=== PATIENT | male | born 1960 | race Two or more races ===

== ENCOUNTER 2021-10-22 01:47 | Emergency (ER) | payer OTHER ==
[~2021-10-22] VITALS: Ht 170.2 cm; Wt 172.4 kg
[2021-10-22 02:58] LABS: Basophils # (auto) 0 10 ^3/uL (0-0.2); Basophils % (auto) 0.7 % (0.0-2.0); Eosinophils # (auto) 0.1 10 ^3/uL (0-0.8); Eosinophils % (auto) 2.7 % (0.0-7.0); Hematocrit 35.7 % (41.0-53.0); Lymphocytes # (auto) 0.9 10 ^3/uL (0.4-5.4); Mean Corpuscular Hemoglobin 28.7 pg (28.0-32.0); Mean Corpuscular Hgb Conc. 33.5 g/dL (32.0-36.0); Mean Corpuscular Volume 85.8 fL (80.0-100.0); Monocytes # (auto) 0.3 10 ^3/uL (0-1.3); Monocytes % (auto) 7.3 % (0.0-12.0); Neutrophils % (auto) 68.3 % (37.0-80.0); Nucleated Red Blood Cells % 0.2 %; Red Blood Cells 4.16 10^6/uL (4.5-5.90); Red Cell Distribution Width 14.7 % (11.8-14.3); White Blood Cell 4.4 10^3/uL (4.4-10.8)
[2021-10-22 03:01] LABS: Albumin 2.8 g/dL (3.4-5.0); Calcium 7.9 mg/dL (8.5-10.1); Potassium 4.4 mmol/L (3.5-5.1)
[2021-10-22 03:03] LABS: BUN/Creatinine Ratio 13.3
[2021-10-22 03:08] LABS: Bilirubin, Total 0.4 mg/dL (0.2-1.0); Total Protein 6.4 g/dL (6.4-8.2)
[2021-10-22] MEDS ORDERED: SODIUM CHLORIDE 0.9% 1,000 ML IV ONE (05:15)
[2021-10-22] MEDS ORDERED: InsuLIN REG 1unit/0.01ml Soln (100units/ml) SC ONE (05:15)
[2021-10-22] MEDS ORDERED: HYDROcodone-ACET 10/325MG TAB PO ONE (09:30)
[2021-10-22] MEDS ORDERED: amLODIPine BESYLATE 5 MG TAB PO ONE (10:15)
[2021-10-22] MEDS ORDERED: AZIT250T9 PO (12:24)
[2021-10-22 13:01] VITALS: BP 166/75
== END 2021-10-22 12:23 | disposition home or self-care (01) ==
LOC: EDBD 01:47 → ER 01:53
DX: R07.89 Other chest pain (principal); I10 Essential (primary) hypertension; E11.9 Type 2 diabetes mellitus without complications
CPT/HCPCS: 36415; 71045; 80053; 83880; 84484; 85025; 93005; 93971; 96360; 99285; J7030

== ENCOUNTER 2022-05-19 03:20 | Emergency (ER) | payer OTHER, MEDICAID ==
[~2022-05-19] VITALS: Ht 167.6 cm; Wt 200.0 kg
[~2022-05-19 03:20] MED LIST: AZIT250T9 PO
[2022-05-19 04:58] LABS: Eosinophils # (auto) 0.1 10 ^3/uL (0-0.8); Lymphocytes # (auto) 0.7 10 ^3/uL (0.4-5.4); Mean Corpuscular Volume 82.7 fL (80.0-100.0); Nucleated Red Blood Cells % 0.1 %; Red Cell Distribution Width 15.6 % (11.8-14.3)
[2022-05-19 04:59] LABS: Basophils # (auto) 0 10 ^3/uL (0-0.2); Basophils % (auto) 0.7 % (0.0-2.0); Eosinophils % (auto) 2.2 % (0.0-7.0); Hematocrit 37.3 % (41.0-53.0); Hemoglobin 12.2 g/dL (13.5-17.5); Lymphocytes % (auto) 14.7 % (10.0-50.0); Mean Corpuscular Hgb Conc. 32.6 g/dL (32.0-36.0); Monocytes # (auto) 0.5 10 ^3/uL (0-1.3); Monocytes % (auto) 9.6 % (0.0-12.0); Neutrophils # (auto) 3.5 10 ^3/uL (1.6-8.6); Neutrophils % (auto) 72.8 % (37.0-80.0); Red Blood Cells 4.51 10^6/uL (4.5-5.90); White Blood Cell 4.8 10^3/uL (4.4-10.8)
[2022-05-19] MEDS ORDERED: HYDROcodone-ACET 10/325MG TAB PO ONE (05:00)
[2022-05-19] MEDS ORDERED: METOPROLOL TARTRATE 50 MG TAB PO ONE (05:00)
[2022-05-19] MEDS ORDERED: LISINOPRIL 20 MG TAB PO ONE (05:00)
[2022-05-19 05:14] LABS: Albumin 2.7 g/dL (3.4-5.0); BUN/Creatinine Ratio 16.7; Calcium 7.8 mg/dL (8.5-10.1); Potassium 4.5 mmol/L (3.5-5.1)
[2022-05-19 05:16] LABS: Bilirubin, Total 0.6 mg/dL (0.2-1.0); Total Protein 6.7 g/dL (6.4-8.2)
[2022-05-19 05:44] LABS: Urine Bacteria NONE SEEN /hpf (None Seen); Urine Blood 2+ /uL (Negative); Urine Specific Gravity 1.024 (1.001-1.035); Urine WBC 3 /hpf (0 - 3)
[2022-05-19] MEDS ORDERED: METO-159 PO (06:08)
[2022-05-19] MEDS ORDERED: HYDR-4798 PO (06:08)
[2022-05-19] MEDS ORDERED: LISI40TA11 PO (06:08)
[2022-05-19] MEDS ORDERED: METOPROLOL TARTRATE 1MG/1ML-5ML VIAL IV ONE (11:30)
[2022-05-19] MEDS ORDERED: SPIRONOLACTONE 25 MG TAB PO ONE (11:30)
[2022-05-19] MEDS ORDERED: FUROSEMIDE 40 MG/4 ML VIAL IV ONE (11:30)
[2022-05-19 14:14] VITALS: BP 169/82
== END 2022-05-19 14:34 | disposition still patient (30) ==
LOC: EDBD 03:20 → ER 03:25
DX: R06.02 Shortness of breath (principal); J44.9 Chronic obstructive pulmonary disease, unspecified; I10 Essential (primary) hypertension; E11.9 Type 2 diabetes mellitus without complications; Z20.822 Contact with and (suspected) exposure to COVID-19
CPT/HCPCS: 36415; 36600; 71045; 80053; 81001; 82805; 82962; 83605; 83880; 84484; 85025; 87040; 87426; 87804; 93005; 96374; 96375; 99285; J1940

== ENCOUNTER 2022-12-26 20:47 | Emergency (ER) | payer OTHER, MEDICAID ==
[~2022-12-26] VITALS: Ht 170.2 cm; Wt 175.0 kg
[~2022-12-26 20:47] MED LIST changes: +AZIT-43 PO; -AZIT250T9 PO; +HYDR-4798 PO; +LISI40TA16 PO; +METO-159 PO
[2022-12-26 21:26] LABS: Basophils # (auto) 0 10 ^3/uL (0-0.2); Basophils % (auto) 0.4 % (0.0-2.0); Eosinophils # (auto) 0.1 10 ^3/uL (0-0.8); Eosinophils % (auto) 2.7 % (0.0-7.0); Hematocrit 37.9 % (41.0-53.0); Hemoglobin 12.6 g/dL (13.5-17.5); Lymphocytes # (auto) 1.3 10 ^3/uL (0.4-5.4); Lymphocytes % (auto) 26.7 % (10.0-50.0); Mean Corpuscular Hemoglobin 28.2 pg (28.0-32.0); Mean Corpuscular Hgb Conc. 33.3 g/dL (32.0-36.0); Mean Corpuscular Volume 84.7 fL (80.0-100.0); Monocytes # (auto) 0.3 10 ^3/uL (0-1.3); Monocytes % (auto) 5.9 % (0.0-12.0); Neutrophils # (auto) 3.2 10 ^3/uL (1.6-8.6); Neutrophils % (auto) 64.3 % (37.0-80.0); Nucleated Red Blood Cells % 0.1 %; Red Blood Cells 4.48 10^6/uL (4.5-5.90); Red Cell Distribution Width 15.1 % (11.8-14.3)
[2022-12-26 21:39] LABS: Albumin 2.5 g/dL (3.4-5.0); Calcium 7.8 mg/dL (8.5-10.1); Potassium 4.3 mmol/L (3.5-5.1)
[2022-12-26 21:41] LABS: Partial Thromboplastin Time 25.6 sec (24.6-33.4)
[2022-12-26 21:42] LABS: BUN/Creatinine Ratio 19.6 (10.0-20.0); Bilirubin, Total 0.2 mg/dL (0.2-1.0); Total Protein 5.4 g/dL (6.4-8.2)
[2022-12-26] MEDS ORDERED: HYDROcodone-ACET 10/325MG TAB PO ONE (23:30)
[2022-12-26] MEDS ORDERED: GABAPENTIN 300 MG CAP PO ONE (23:30)
[2022-12-26] MEDS ORDERED: InsuLIN REG 1unit/0.01ml Soln (100units/ml) SC ONE (23:30)
[2022-12-26] MEDS ORDERED: INSULIN 70/30 1unit/0.01ml Susp (100units/ml) SC ONE (23:30)
[2022-12-26] MEDS: ASPirin 81 mg TAB PO ONE (23:45)
[2022-12-27] MEDS: ASPirin 81 mg TAB PO ONE (00:21)
[2022-12-27] MEDS ORDERED: METOPROLOL TARTRATE 1MG/1ML-5ML VIAL IV ONE (02:30)
[2022-12-27 04:53] VITALS: BP 178/67
[2022-12-27] MEDS ORDERED: HYDROcodone-ACET 10/325MG TAB PO ONE (05:00)
== END 2022-12-27 05:16 | disposition short-term general hospital (02) ==
LOC: EDBD 20:47 → ER 20:51
DX: R06.02 Shortness of breath (principal); J44.9 Chronic obstructive pulmonary disease, unspecified; I11.0 Hypertensive heart disease with heart failure; I50.9 Heart failure, unspecified; E11.9 Type 2 diabetes mellitus without complications; Z20.822 Contact with and (suspected) exposure to COVID-19; Z88.6 Allergy status to analgesic agent; Z88.0 Allergy status to penicillin
CPT/HCPCS: 36415; 71045; 80053; 82962; 83735; 83880; 84484; 85025; 85379; 85610; 85730; 87426; 93005; 96372; 96374; 99285; J1815

== ENCOUNTER 2023-04-12 22:46 | Emergency (ER) | payer OTHER, MEDICAID ==
[~2023-04-12] VITALS: Ht 170.2 cm; Wt 180.0 kg
[2023-04-12 23:23] LABS: Basophils # (auto) 0 10 ^3/uL (0-0.2); Basophils % (auto) 0.3 % (0.0-2.0); Eosinophils # (auto) 0 10 ^3/uL (0-0.8); Eosinophils % (auto) 0.3 % (0.0-7.0); Hematocrit 38.3 % (41.0-53.0); Hemoglobin 12.4 g/dL (13.5-17.5); Lymphocytes # (auto) 1.5 10 ^3/uL (0.4-5.4); Mean Corpuscular Hemoglobin 27.8 pg (28.0-32.0); Mean Corpuscular Hgb Conc. 32.3 g/dL (32.0-36.0); Mean Corpuscular Volume 86.2 fL (80.0-100.0); Monocytes # (auto) 0.3 10 ^3/uL (0-1.3); Neutrophils # (auto) 12.2 10 ^3/uL (1.6-8.6); Neutrophils % (auto) 86.4 % (37.0-80.0); Red Blood Cells 4.44 10^6/uL (4.5-5.90); Red Cell Distribution Width 15.6 % (11.8-14.3); White Blood Cell 14.1 10^3/uL (4.4-10.8)
[2023-04-12 23:35] LABS: INR 1.06 (0.9-1.15); Partial Thromboplastin Time 27.7 SEC (24.5-34.5); Prothrombin Time 11.1 sec (9.3-11.8)
[2023-04-13 00:06] VITALS: PULSE 88; RESP 20; O2SAT 97
[2023-04-13] MEDS ORDERED: AZITHROMYCIN 500MG/ 250ML 250 ML IV ONE (01:15)
[2023-04-13] MEDS ORDERED: ALBUTEROL SULF 2.5 MG/0.5ML(0.5%) NEB SOLN NEB ONE (01:15)
[2023-04-13] MEDS ORDERED: cefTRIAXone 1GM/50ML D5W 50 ML IV ONE (01:15)
[2023-04-13 02:10] LABS: Alanine Aminotransferase 17 U/L (7-40); Alkaline Phosphatase 129 U/L (46-116); Anion Gap 9 (5-15); Aspartate Aminotransferase 22 U/L (13-40); BUN/Creatinine Ratio 13.8 (10.0-20.0); Bilirubin, Total 0.6 mg/dL (0.2-1.0); Blood Urea Nitrogen 22 mg/dL (9-23); Calcium 9.1 mg/dL (8.7-10.4); Carbon Dioxide 29 mmol/L (20-30); Chloride 102 mmol/L (98-107); Glucose 246 mg/dL (74-106); Potassium 4.9 mmol/L (3.5-5.1); Sodium 140 mmol/L (136-145); Total Protein 6.7 g/dL (5.7-8.2)
[2023-04-13 03:45] LABS: Albumin 3.8 g/dL (3.2-4.8)
[2023-04-13 06:31] LABS: COVID19 ANTIGEN SOFIA FIA NEGATIVE (NEGATIVE)
[2023-04-13] MEDS ORDERED: MORPHINE SULFATE 4 MG/ML SYR/VIAL IV PRN (07:15)
[2023-04-13 08:00] VITALS: PULSE 76; RESP 22; O2SAT 95
[2023-04-13] MEDS ORDERED: ONDANSETRON HCL 4 MG/2 ML VIAL IV PRN (08:30)
[2023-04-13] MEDS ORDERED: MORPHINE SULFATE 4 MG/ML SYR/VIAL IV ONE (08:30)
[2023-04-13] MEDS ORDERED: ONDANSETRON HCL 4 MG/2 ML VIAL IV ONE (08:30)
[2023-04-13 09:58] VITALS: TEMP 98.6; O2SAT 97
[2023-04-13 10:16] VITALS: BP 159/50; PULSE 80; RESP 19
== END 2023-04-13 10:32 | disposition short-term general hospital (02) ==
LOC: EDBD 22:46 → ER 22:46
DX: R50.9 Fever, unspecified (principal); R06.02 Shortness of breath; D72.829 Elevated white blood cell count, unspecified; L30.4 Erythema intertrigo; J98.8 Other specified respiratory disorders; J44.9 Chronic obstructive pulmonary disease, unspecified; E11.9 Type 2 diabetes mellitus without complications; I10 Essential (primary) hypertension; Z20.822 Contact with and (suspected) exposure to COVID-19
CPT/HCPCS: 36415; 71045; 80053; 83605; 83880; 84484; 85025; 85610; 85730; 87040; 87426; 93005; 94640; 96365; 96366; 96367; 96375; 96376; 99285; J0456; J0696; J2270; J2405

== ENCOUNTER 2023-10-08 11:10 | Emergency (ER) | payer OTHER, MEDICAID ==
[~2023-10-08] VITALS: Ht 177.8 cm; Wt 181.8 kg
[2023-10-08 11:53] VITALS: PULSE 63; RESP 15; O2SAT 93
[2023-10-08 12:12] LABS: Basophils # (auto) 0 10 ^3/uL (0-0.2); Basophils % (auto) 0.4 % (0.0-2.0); Eosinophils # (auto) 0.1 10 ^3/uL (0-0.8); Eosinophils % (auto) 1.2 % (0.0-7.0); Hematocrit 35.1 % (41.0-53.0); Hemoglobin 11.3 g/dL (13.5-17.5); Lymphocytes % (auto) 14.7 % (10.0-50.0); Mean Corpuscular Hemoglobin 28.3 pg (28.0-32.0); Mean Corpuscular Hgb Conc. 32.2 g/dL (32.0-36.0); Mean Corpuscular Volume 87.9 fL (80.0-100.0); Monocytes # (auto) 0.4 10 ^3/uL (0-1.3); Monocytes % (auto) 6.1 % (0.0-12.0); Neutrophils # (auto) 5.1 10 ^3/uL (1.6-8.6); Neutrophils % (auto) 77.6 % (37.0-80.0); Nucleated Red Blood Cells % 0.1 %; Red Cell Distribution Width 14.9 % (11.8-14.3); White Blood Cell 6.6 10^3/uL (4.4-10.8)
[2023-10-08 12:20] LABS: Alanine Aminotransferase 17 U/L (7-40); Albumin 3.5 g/dL (3.2-4.8); Alkaline Phosphatase 101 U/L (46-116); Anion Gap 1 (5-15); Aspartate Aminotransferase 19 U/L (13-40); BUN/Creatinine Ratio 21.7 (10.0-20.0); Blood Urea Nitrogen 36 mg/dL (9-23); Calcium 8.7 mg/dL (8.5-10.1); Carbon Dioxide 36 mmol/L (20-30); Chloride 104 mmol/L (98-107); Glucose 180 mg/dL (74-106); Potassium 4.8 mmol/L (3.5-5.1); Sodium 141 mmol/L (136-145)
[2023-10-08 12:21] LABS: Bilirubin, Total 0.6 mg/dL (0.2-1.0); Total Protein 5.8 g/dL (5.7-8.2)
[2023-10-08] MEDS: ALBUTEROL SULF 2.5 MG/0.5ML(0.5%) NEB SOLN NEB ONE (12:44)
[2023-10-08] MEDS: IPRATROPIUM BROM 0.5 MG/2.5ML INH SOL NEB ONE (12:44)
[2023-10-08] MEDS: methylPREDNISolone SOD SUCC 125 MG/2 ML VL IV ONE (12:55)
[2023-10-08] MEDS: FUROSEMIDE 40 MG/4 ML VIAL IV ONE (12:55)
[2023-10-08] MEDS: GABAPENTIN 300 MG CAP PO ONE (17:08)
[2023-10-08] MEDS: OXYCODONE W/ ACETAMINOPHEN 5/325MG TABLET PO ONE (17:09)
[2023-10-08] MEDS: InsuLIN REG 1unit/0.01ml Soln (100units/ml) SC ONE (18:21)
[2023-10-08] MEDS: METOPROLOL TARTRATE 50 MG TAB PO ONE (18:25)
[2023-10-08] MEDS: LISINOPRIL 20 MG TAB PO ONE (18:25)
[2023-10-08 19:39] VITALS: PULSE 71; RESP 19; O2SAT 94
[2023-10-08 23:35] VITALS: BP 157/62; PULSE 77; RESP 14; TEMP 98; O2SAT 96
== END 2023-10-08 23:50 | disposition short-term general hospital (02) ==
LOC: ER 11:10 → EDUNIT# 11:10 → EDBD 11:10 → ER 23:50
DX: I11.0 Hypertensive heart disease with heart failure (principal); I50.9 Heart failure, unspecified; J44.9 Chronic obstructive pulmonary disease, unspecified; E11.9 Type 2 diabetes mellitus without complications; Z88.0 Allergy status to penicillin; Z88.6 Allergy status to analgesic agent
CPT/HCPCS: 36415; 71045; 80053; 82962; 83880; 84484; 85025; 93005; 94640; 96372; 96374; 96375; 99291; J1815; J1940; J2930; J7644

== ENCOUNTER 2025-07-04 11:37 | Emergency (ER) | payer OTHER, MEDICAID ==
[~2025-07-04] VITALS: Ht 167.6 cm; Wt 186.0 kg
--- NOTE | 2025-07-04 11:52 | ECG ---
[facility] Test Date: 2025-07-04 Test Time: 11:49:06 Pat Name: ISAAC BARKLEY Department: Room: Gender: M Linen Folder: RADHA : 1960 Requested By: FALLON LEÓN Order Number: [id number] Reading MD: Al Starks Measurements Intervals [place] Rate: 70 P: 0 WA: 57 QRS: -5 QRSD: 102 T: 127 QT: 415 QTc: 448 Interpretive Statements Sinus rhythm Short WA interval Consider right atrial enlargement Low voltage, precordial leads Abnormal T, consider ischemia, lateral leads Baseline wander in lead(s) I Electronically Signed On 07-07-2025 19:22:02 PST by Al Starks Please click the below link to view image of tracing.
[2025-07-04 12:14] VITALS: PULSE 69; RESP 12; O2SAT 92
[2025-07-04] MEDS: ALBUTEROL SULF 2.5 MG/0.5ML(0.5%) NEB SOLN NEB ONE (12:51)
[2025-07-04] MEDS: IPRATROPIUM BROM 0.5 MG/2.5ML INH SOL NEB ONE (12:51)
--- NOTE | 2025-07-04 12:57 | DVH ---
EXAM: XY CHEST XRAY 1 VIEW HISTORY: sob COMPARISON: XY CHEST PORTABLE on DOS: 10/08/23, XY CHEST PORTABLE on DOS: 04/12/23, XY CHEST PORTABLE on DOS: 12/26/22, CXRP on DOS: 05/19/22, CHEST PORTABLE on DOS: 05/19/22 TECHNIQUE: Portable AP view of the chest was performed. FINDINGS: Lung volumes are low, greater on the right due to elevation of the right hemidiaphragm. There is hazy opacity throughout both lungs, greater on the left. No pneumothorax. The heart is enlarged. There is abundant overlying adipose tissue. IMPRESSION: Cardiomegaly with diffuse hazy opacities in both lungs which may be due to CHF and/or pneumonia. This appearance is likely exaggerated by the patient's large body habitus and Low lung volumes.
[2025-07-04 13:24] LABS: Hematocrit 32.1 % (41.0-53.0); Hemoglobin 10.1 g/dL (13.5-17.5); Mean Corpuscular Hemoglobin 27.4 pg (28.0-32.0); Mean Corpuscular Volume 87.5 fL (80.0-100.0); Nucleated Red Blood Cells % 0.1 %
--- NOTE | 2025-07-04 13:25 | ED.PDOC ---
SOB-HPI HPI Comments This is a 64-year-old male with a PMHx of CHF, COPD, type 2 diabetes mellitus, hypertension, COVIDx3 and morbid obesity, who has come to the ER today via EMS with chief complaints of shortness of breath. Patient reports that he has felt short of breath for 1 week which has been worsening, and today he weeks down to his PCP via telephone who asked him to call 911. Patient reports that he tried his breathing treatments which did not help and he even increased his home oxygen of 3 L to 4 L but still felt no relief. He also reports of slight tightness of chest and slight blurring of vision in the right eye. Patient reports that he feels like he is retaining fluid and states that he uses Lasix at home and that his home health nurse has been telling him his legs more swollen than before. Patient denies any cough, fever, chills, recent sick contacts or any other symptoms. EMS informed that the patient's blood pressure en route was 171/67 mmHg, HR 89, SpO2 91% on 4 L oxygen, RR 22, blood sugar levels 167. Chief Complaint: Shortness of Breath Time Seen by MD: 11:55 Primary Care Provider: YUDY Navarrete notes: Medications, Allergies Information Source: Patient, Emergency Med Personnel Mode of Arrival: EMS Severity: Severe Timing: Days Duration: Since onset Context: At Rest PE Risk Factors: Immobilization History of: COPD, CHF Prehospital treatment: Oxygen Modifying Factors: Nothing Associated Signs and Symptoms: Chest Pain Quality: Tightness Radiation: No Radiation Location: Substernal Past Medical History PAST MEDICAL HISTORY: CHF, COPD, DM, HTN Surgical History: Denies all surgeries Family History Family History: Reviewed,noncontributory to illness Social History Smoker: Non-Smoker Alcohol: Denies ETOH Use Drugs: Denies Drug Use Lives In: Home Constitutional: denies: chills, diaphoresis, fatigue, fever, malaise, sweats, weakness, others EENTM: denies: blurred vision, double vision, ear bleeding, ear discharge, ear drainage, ear pain, ear ringing, eye pain, eye redness, hearing loss, mouth p ain, mouth swelling, nasal discharge, nose bleeding, nose congestion, nose pain, photophobia, tearing, throat pain, throat swelling, voice changes, others Respiratory: reports: SOB at rest; denies: cough, hemoptysis, orthopnea, shortness of breath, SOB with excertion, stridor, wheezing, others Cardiovascular: reports: edema (Bilateral leg edema, painful on touch, erythematous); denies: chest pain, dizzy spells, diaphoresis, Dyspnea on exertion, irregular heart beat, left arm pain, lightheadedness, palpitations, PND, syncope, others Gastrointestinal: denies: abdomen distended, abdominal pain, blood streaked bowels, constipated, diarrhea, dysphagia, difficulty swallowing, hematemesis, melena, nausea, poor appetite, poor fluid intake, rectal bleeding, rectal pain, vomiting, others Genitourinary: denies: burning, dysuria, flank pain, frequency, hematuria, incontinence, penile discharge, penile sore, pain, testicle pain, testicle swelling, urgency, others Neurological: denies: dizziness, fainting, headache, left sided numbness, left sided weakness, numbness, paresthesia, pre-existing deficit, right sided numbness, right sided weakness, seizure, speech problems, tingling, tremors, weakness, others Musculoskeletal: reports: gout; denies: back pain, joint pain, joint swelling, muscle pain, muscle stiffness, neck pain, others Integumetry: reports: others (Bilateral lower leg erythema); denies: bruises, change in color, change in hair/nails, dryness, laceration, lesions, lumps, rash, wounds Allergic/Immunocompromised: denies: Difficulty Healing, Frequent Infections, Hives, Itching, others Hematologic/Lymphatic: denies: anemia, blood clots, easy bleeding, easy bruising, swollen glands, others Endocrine: denies: excessive hunger, excessive sweating, excessive thirst, excessive urination, flushing, intolerance to cold, intolerance to heat, unexplained weight gain, unexplained weight loss, others Psychiatric: denies: anxiety, bipolar disorder, depression, hopeless, panic disorder, schizophrenia, sleepless, suicidal, others Physical Exam General Appearance: Moderate Distress HEENT: Other (, no icterus, patient maintains eye contact, patient on 4 L oxygen via nasal cannula) Neck: Full Range of Motion, Normal Respiratory: Decreased Breath Sounds, Respiratory Distress, Other (No wheeze, stridor or rhonchi heard) Cardiovascular: No JVD, No Murmur, Regular Rate/Rhythm, Other (Bilateral pitting edema +1 of to knee) Breast Exam: Deferred Gastrointestinal: Non Tender, No Pulsatile Mass, Normal Bowel Sounds Genitalia: Deferred Pelvic: Deferred Rectal: Deferred Extremities: Other (Presence of bilateral pitting edema +1 up to knee, tenderness on palpation of bilateral legs, erythematous) Neurologic: Other (No sensory motor deficits noted, no facial droop) Cerebellar Function: Unable to Test Reflexes: Normal Skin: Normal Color Lymphatic: Other (No cervical lymphadenopathy palpated) Was a procedure done? Was a procedure done?: No Differential Dx Differential Diagnosis: Bronchitis, CHF, COPD, Pneumonia, URI X-Ray, Labs, Meds, VS Vital Signs Date Time Temp Pulse Resp B/P (MAP) Pulse Ox O2 Delivery O2 Flow Rate FiO2 07/04/25 12:40 16 97 Nasal Cannula* 3 32 07/04/25 12:14 12 92 Nasal Cannula* 3 32 07/04/25 12:14 97.6 69 12 153/43 (79) 92 97.6 07/04/25 12:14 69 12 92 Nasal Cannula* 3 32 07/04/25 11:49 70 07/04/25 11:42 98.9 112 22 171/67 91 98.9 07/04/25 11:42 91 Nasal Cannula* 4 36 Lab Test 07/04/25 14:15 07/04/25 13:40 07/04/25 12:33 Range/Units Lactic Acid Level 1.3 0.4-2.0 mmol/L Troponin I High Sensitivity 16 18 </=54 ng/L White Blood Count 4.1 L 4.4-10.8 10^3/uL Red Blood Count 3.67 L 4.5-5.90 10^6/uL Hemoglobin 10.1 L 13.5-17.5 g/dL Hematocrit 32.1 L 41.0-53.0 % Mean Corpuscular Volume 87.5 80.0-100.0 fL Mean Corpuscular Hemoglobin 27.4 L 28.0-32.0 pg Mean Corpuscular Hemoglobin Concent 31.3 L 32.0-36.0 g/dL Red Cell Distribution Width 14.9 H 11.8-14.3 % Platelet Count 161 140-450 10^3/uL Mean Platelet Volume 8.3 6.9-10.8 fL Neutrophils (%) (Auto) 71.9 37.0-80.0 % Lymphocytes (%) (Auto) 18.9 10.0-50.0 % Monocytes (%) (Auto) 5.3 0.0-12.0 % Eosinophils (%) (Auto) 3.2 0.0-7.0 % Basophils (%) (Auto) 0.7 0.0-2.0 % Neutrophils # (Auto) 2.9 1.6-8.6 10 ^3/uL Lymphocytes # (Auto) 0.8 0.4-5.4 10 ^3/uL Monocytes # (Auto) 0.2 0-1.3 10 ^3/uL Eosinophils # (Auto) 0.1 0-0.8 10 ^3/uL Basophils # (Auto) 0 0-0.2 10 ^3/uL Nucleated Red Blood Cells 0.1 % Sodium Level 147 H 136-145 mmol/L Potassium Level 4.8 3.5-5.1 mmol/L Chloride Level 101 98-107 mmol/L Carbon Dioxide Level > 40 *H 20-31 mmol/L Anion Gap 5.85612 5-15 Blood Urea Nitrogen 32 H 9-23 mg/dL Creatinine 1.45 H 0.700-1.30 mg/dL Glomerular Filtration Rate Calc 53 >90 mL/min BUN/Creatinine Ratio 22.1 H 10.0-20.0 Serum Glucose 142 H 74-106 mg/dL Calcium Level 8.8 8.7-10.4 mg/dL B-Type Natriuretic Peptide 37.96 0-100 pg/mL Current Medications Medications (Trade) Dose Ordered Sig/Tori Route Start Time Stop Time Status Last Admin Albuterol (Ventolin Medneb) 5 mg ONCE ONCE NEB 07/04/25 12:15 07/04/25 12:19 DC 07/04/25 12:51 Ipratropium [place] (Atrovent Medneb) 0.5 mg ONCE ONCE NEB 07/04/25 12:15 07/04/25 12:19 DC 07/04/25 12:51 Images Reviewed?: Images reviewed and evaluated by me Time of 1ST Reevaluation: 13:20 Reevaluation 1ST: Unchanged Patient Education/Counseling: Diagnosis, Treatment Family Education/Counseling: No Family Present Comments Patient came to the ER with chief complaints of shortness of breaths. Saturation was maintained with 4 L of oxygen in the ER Via nasal cannula. We gave the patient breathing treatment with med nebs ipratropium bromide 0.5 mg and albuterol 5 mg stat. A chest x-ray revealed cardiomegaly and diffuse hazy opacities likely CHF or pneumonia. Be MP shows chronic CKD with creatinine 1.45, BUN 32, serum glucose is slightly high at 142 and shows carbon dioxide retention with levels greater than 40. CBC shows WBC 4.1, slightly low hemoglobin 10.1 with a normal MCV. Troponin levels came back negative and BNP levels were normal at 37.96. Patient was given IV stat levofloxacin 500 mg. Lactic acid levels are normal at 1.3 and blood cultures have been ordered. Patient is stable and can be transferred to [place]. SEPSIS Sepsis Screen Date sepsis recognized/suspect: Jul 04, 2025 Time Sepsis recognized/suspect: 1213 Recent Procedure: No On Antibiotic Therapy: No Respiratory Rate >20: No Heart Rate >90: No Temp<36 C (96.8 F) or >38.3 C: No SBP <90 or MAP <65 mmHG: No New Acute Mental Status Change: No Is the patient on CPAP, BIPAP,: No Physician Orders Chest Xray 1 View (07/04/25 12:13) Troponin-I Hs (07/04/25 15:50) Blood Culture (07/04/25 13:48) Levofloxacin 500mg (Levaquin 500mg/ 100m (07/04/25 14:45) Dexamethasone Injection (Decadron Inject (07/04/25 15:15) Vital Signs Date Time Temp Pulse Resp B/P (MAP) Pulse Ox O2 Delivery O2 Flow Rate FiO2 07/04/25 12:40 16 97 Nasal Cannula* 3 32 07/04/25 12:14 12 92 Nasal Cannula* 3 32 07/04/25 12:14 97.6 69 12 153/43 (79) 92 97.6 07/04/25 12:14 69 12 92 Nasal Cannula* 3 32 07/04/25 11:49 70 07/04/25 11:42 98.9 112 22 171/67 91 98.9 07/04/25 11:42 91 Nasal Cannula* 4 36 Laboratory Tests Test 07/04/25 12:33 07/04/25 14:15 White Blood Count 4.1 10^3/uL (4.4-10.8) L Lactic Acid Level 1.3 mmol/L (0.4-2.0) Medications Medications Dose Ordered Sig/Tori Route Start Time Stop Time Status Last Admin Dose Admin Albuterol 5 mg ONCE ONCE NEB 07/04/25 12:15 07/04/25 12:19 DC 07/04/25 12:51 Ipratropium [place] 0.5 mg ONCE ONCE NEB 07/04/25 12:15 07/04/25 12:19 DC 07/04/25 12:51 Departure 1 Departure Time of Disposition: 15:17 ([facility] Authorization: [id number] likely with acute on chronic respiratory failure and acute on chronic systolic failure patient accepted as a transfer to [place].) Impression: Primary Impression: Acute on chronic hypoxic respiratory failure Additional Impression: Acute on chronic systolic (congestive) heart failure Disposition: 02 SHORT TERM HOSPITAL Condition: Serious Critical Care Note Critical Care Time?: No Stability Stability form required: No Heart Score Heart Score: Heart Score Response (Comments) Value History Slightly Suspicious 0 EKG Normal 0 Age >65 2 Risk Factors 1 or 2 risk factors 1 Troponin Normal limit 0 Total 3 NAREN RILEY RESIDENT Jul 04, 2025 13:25 FALLON LEÓN MD Jul 04, 2025 15:18
[2025-07-04 13:37] LABS: Chloride 101 mmol/L (98-107); Potassium 4.8 mmol/L (3.5-5.1)
[2025-07-04 13:38] LABS: Calcium 8.8 mg/dL (8.7-10.4)
[2025-07-04 13:43] LABS: BUN/Creatinine Ratio 22.1 (10.0-20.0)
[2025-07-04 13:44] LABS: Anion Gap 5.99999 (5-15); Blood Urea Nitrogen 32 mg/dL (9-23); Glucose 142 mg/dL (74-106); Sodium 147 mmol/L (136-145)
[2025-07-04 13:45] LABS: Carbon Dioxide > 40 mmol/L (20-31)
[2025-07-04 19:10] LABS: COVID19 ANTIGEN SOFIA FIA POSITIVE (NEGATIVE)
[2025-07-04 19:50] VITALS: PULSE 66; RESP 13; O2SAT 90
[2025-07-04 20:16] VITALS: BP 112/92; PULSE 64; RESP 13; TEMP 98.9; O2SAT 92
== END 2025-07-04 20:35 | disposition short-term general hospital (02) ==
LOC: ER 11:37 → EDBD 11:37 → ER 20:35
DX: J96.21 Acute and chronic respiratory failure with hypoxia (principal); I50.23 Acute on chronic systolic (congestive) heart failure; U07.1 COVID-19; I11.0 Hypertensive heart disease with heart failure; I50.9 Heart failure, unspecified; E11.9 Type 2 diabetes mellitus without complications; J44.9 Chronic obstructive pulmonary disease, unspecified; E66.01 Morbid (severe) obesity due to excess calories; Z68.44 Body mass index [BMI] 60.0-69.9, adult
CPT/HCPCS: 36415; 71045; 80048; 82947; 83605; 83880; 84484; 85025; 87040; 87426; 93005; 94640; 96365; 96375; 99285; J1100; J1956